=== PATIENT | male | born 1935 | race Caucasian/White ===

== ENCOUNTER 2017-11-20 13:50 | Emergency (ER) | payer MEDICARE, OTHER, SELFPAY ==
[2017-11-20 13:54] VITALS: BP 137/73; PULSE 59; RESP 14; TEMP 36.6; O2SAT 97; BMI 31.0
--- NOTE | 2017-11-20 14:09 | ED_ITS ---
HPI - Extremity Injury (Lower) General Chief Complaint: Extremity Injury, Lower Stated Complaint: PAIN IN LEFT LEG Time Seen by Provider: 11/20/17 14:08 Source: patient Mode of arrival: ambulatory Limitations: no limitations History of Present Illness HPI Narrative: This 82-year-old male comes in due to onset of left lower leg pain yesterday without any known trauma. He has been walking daily as usual including today. He states that does not seem to make much of a difference in the pain, however it was quite achy and bothersome to him last night. He states pain is dull and at times he will feel a little bit of brief, sharper pain lateral to the left knee. He states that he was concerned about pain in his calf because he has a history of phlebitis in that leg in the last couple of months. No deep clock was found and he states he has not needed any treatment for that. He denies any chest pain, dyspnea, nausea or vomiting. He denies any swelling in his extremities, lightheadedness, or other complaints on systems review Related Data Home Medications Medication Instructions Recorded Confirmed ASPIRIN (Aspirin Low Dose) 81 mg PO Q DAY #0 07/28/08 CALCIUM CARBONATE/VITAMIN D3 600 mg PO Q DAY #0 07/28/08 (Oyster Shell Calcium-Vit D Tab) ISOSORBIDE DINITRATE (Isordil) 60 mg PO BID #0 07/28/08 LEVOTHYROXINE SODIUM (Synthroid) 150 mcg PO Q DAY #0 07/28/08 OMEPRAZOLE 20 mg PO Q DAY #0 07/28/08 Simvastatin (Zocor) 40 mg PO HS #0 07/28/08 VERAPAMIL HYDROCHLORIDE (Isoptin / 40 mg PO BID #0 07/28/08 Calan) VITAMIN C - 500 mg PO Q DAY #0 07/28/08 (VITAMIN C) [AVODART] 0.5 Q DAY #0 07/28/08 Review of Systems Review of Systems All systems reviewed & are unremarkable except as noted in HPI and below PFSH Medical History BPH (benign prostatic hyperplasia) (Chronic) GERD (gastroesophageal reflux disease) (Chronic) GERD with apnea (Chronic) HTN (hypertension) (Chronic) Phlebitis (Chronic) Surgical History History of cataract surgery (Resolved) Hx of vasectomy (Resolved) Social History Smoking Status: Never smoker Exam Narrative Exam Narrative: GENERAL APPEARANCE: Patient sitting comfortably, in no distress. NECK/THYROID: Neck supple, no JVD. LUNGS: Clear to auscultation bilaterally. HEART: Regular rate and rhythm without murmur, normal S1, S2, no S3 or S4. EXTREMITIES: No cyanosis or edema. DP and PT pulses 2+ bilaterally Left calf is moderately tender, also tender over the borders of the left mauro. There is a large ropy varicosity noted in the right medial thigh which is nontender NEUROLOGIC: Alert and oriented, normal speech and coordination. MS: There is no tenderness over the left knee joint. He has a little bit mild tenderness at the proximal border of the left fibula. Also mildly tender over the left TFL distribution to the lateral hip. Full ROM left hip and knee without tenderness MDM - Extremity Injury (Lower) Imaging Data doppler: Radiologist's impression: View Report History Print [address] [address] Ultrasound Report Signed Patient: Avinash Alford MR#: [id number] : 1935 Acct:[id number] Age/Sex: 82 / M Date of Service: 11/20/17 Loc: ED Accession Number: [id number] Procedure: perip venous low extrem lt Ordering Provider: Yazmin Peres P.A-C PROCEDURE: US PERIP VENOUS LOW EXTREM LT INDICATIONS: CALF PAIN; RECENT PHLEBITIS TECHNIQUE: Real-time imaging, as well as color and pulse Doppler interrogation, were performed of the lower extremity deep veins from the inguinal ligament to the popliteal fossa. COMPARISON: [facility], PVE UNILATERAL LEFT, 08/28/2017, 15:56. FINDINGS: The deep veins are normally compressible, and free of intraluminal thrombus. Color and pulse Doppler demonstrate normal phasic intraluminal flow. There is normal augmentation response to distal compression maneuver. IMPRESSION: No evidence of left lower extremity deep venous thrombus. Dictated by: Kenneth Moran M.D. on 11/20/2017 at 15:15 Approved by: Kenneth Moran M.D. on 11/20/2017 at 15:[address] [address] Ultrasound Report Signed Patient: Avinash Alford MR#: [id number] : 1935 Acct:[id number] Age/Sex: 82 / M Date of Service: 11/20/17 Loc: ED Accession Number: [id number] Procedure: US periph venous low extrem lt Ordering Provider: Yazmin Peres P.A-C PROCEDURE: US PERIPH VENOUS LOW EXTREM LT INDICATIONS: CALF PAIN; RECENT PHLEBITIS TECHNIQUE: Real-time imaging, as well as color and pulse Doppler interrogation, were performed of the lower extremity deep veins from the inguinal ligament to the popliteal fossa. COMPARISON: [facility], , PVE UNILATERAL LEFT, 08/28/2017, 15:56. FINDINGS: The deep veins are normally compressible, and free of intraluminal thrombus. Color and pulse Doppler demonstrate normal phasic intraluminal flow. There is normal augmentation response to distal compression maneuver. IMPRESSION: No evidence of left lower extremity deep venous thrombus. Dictated by: Kenneth Moran M.D. on 11/20/2017 at 15:15 Approved by: Kenneth Moran M.D. on 11/20/2017 at 15:16 Course Orders Ordered: ED Orders 11/20/17 14:24 US perip venous low extrem lt Stat Last Vital Signs Temp 97.6 F 11/20/17 15:48 Pulse 63 11/20/17 15:48 Resp 20 11/20/17 15:48 BP 135/78 H 11/20/17 15:48 Pulse Ox 97 11/20/17 15:48 Discharge Plan Departure Patient Disposition: Home, Self-Care Clinical Impression: Mauro splints, Strain of calf muscle Discharge Date/Time: 11/20/17 15:51 Interventions: ED Discharge Assessment Last Done: 11/20/17 15:48 Instructions: DI for Calf Muscle Strain, DI for Mauro Splint-Adult Activity Restrictions/Additional Instructions: There is no clot in your deep veins found on ultrasound today. You appear to have strain of the calf muscles as well as strain of the muscles that attached to your mauro ?mauro splints?. I have given you instructions for these. You can continue your Aleve and also add Tylenol if needed (tylenol arthritis or 8 hour is 650mg per tab, 1 tab every 8 hours as needed). You should follow up with your PCP for recheck, and return if any new or acutely worsening symptoms in the interim. it is not clear why you have developed these now since you have not changed or exercise routine or activity so you should talk with your PCP about whether further testing or referrals are needed Prescriptions: No Action VERAPAMIL HYDROCHLORIDE (Isoptin / Calan) 40 mg PO BID Qty: 0 RF: 0 ASPIRIN (Aspirin Low Dose) 81 mg PO Q DAY Qty: 0 RF: 0 ISOSORBIDE DINITRATE (Isordil) 60 mg PO BID Qty: 0 RF: 0 OMEPRAZOLE 20 mg PO Q DAY Qty: 0 RF: 0 Simvastatin (Zocor) 40 mg PO HS Qty: 0 RF: 0 CALCIUM CARBONATE/VITAMIN D3 (Oyster Shell Calcium-Vit D Tab) 600 mg PO Q DAY Qty: 0 RF: 0 LEVOTHYROXINE SODIUM (Synthroid) 150 mcg PO Q DAY Qty: 0 RF: 0 VITAMIN C - (VITAMIN C) 500 mg PO Q DAY Qty: 0 RF: 0 [AVODART] 0.5 Q DAY Qty: 0 RF: 0 Referrals: Diego Field MD [Primary Care Provider] -
--- NOTE | 2017-11-20 14:24 | DI.US.S_ITS ---
PROCEDURE: US PERIPH VENOUS LOW EXTREM LT INDICATIONS: CALF PAIN; RECENT PHLEBITIS TECHNIQUE: Real-time imaging, as well as color and pulse Doppler interrogation, were performed of the lower extremity deep veins from the inguinal ligament to the popliteal fossa. COMPARISON: [facility], , PVE UNILATERAL LEFT, 08/28/2017, 15:56. FINDINGS: The deep veins are normally compressible, and free of intraluminal thrombus. Color and pulse Doppler demonstrate normal phasic intraluminal flow. There is normal augmentation response to distal compression maneuver. IMPRESSION: No evidence of left lower extremity deep venous thrombus. Dictated by: Kenneth Moran M.D. on 11/20/2017 at 15:15 Approved by: Kenneth Moran M.D. on 11/20/2017 at 15:16
[2017-11-20 15:48] VITALS: BP 135/78; PULSE 63; RESP 20; TEMP 36.4; O2SAT 97
== END 2017-11-20 15:51 | disposition home or self-care (01) ==
PROVIDERS: Emergency Provider Internal Medicine; Family Provider Family Medicine; PCP Family Medicine
DX: S86.899A Other injury of other muscle(s) and tendon(s) at lower leg level, unspecified leg, initial encounter (principal); S86.819A Strain of other muscle(s) and tendon(s) at lower leg level, unspecified leg, initial encounter; Y93.01 Activity, walking, marching and hiking
CPT/HCPCS: 93971; 99282; 99284

== ENCOUNTER → 2018-12-21 13:47 | Outpatient (CLI) | payer MEDICARE, OTHER, SELFPAY ==
--- NOTE | 2018-12-21 | DI.RAD.S_ITS ---
PROCEDURE: XR KNEE LT 3V INDICATIONS: LEFT KNEE PAIN TECHNIQUE: 3 views of the knee were acquired. COMPARISON: [facility], , KNEE 3V LEFT, 01/10/2015, 12:51. FINDINGS: Bones: No fractures or dislocations. No suspicious bony lesions. Soft tissues: No joint effusion. Vascular calcifications consistent with atherosclerosis. IMPRESSION: Normal left knee. Atherosclerotic calcifications are present. Dictated by: Mitch Meier M.D. on 12/21/2018 at 16:59 Approved by: Mitch Meier M.D. on 12/21/2018 at 17:00
== END ==
PROVIDERS: Family Provider Family Medicine; PCP Family Medicine; Visit Provider Internal Medicine
DX: M25.562 Pain in left knee (principal); I70.202 Unspecified atherosclerosis of native arteries of extremities, left leg
CPT/HCPCS: 73562

== ENCOUNTER 2019-06-24 23:46 | Emergency (ER) | payer MEDICARE, OTHER, SELFPAY ==
[2019-06-24 23:55] VITALS: BP 150/89; PULSE 70; RESP 17; TEMP 36.8; O2SAT 97; BMI 28.7
--- NOTE | 2019-06-25 00:17 | ED_ITS ---
HPI - Male Genitourinary General Chief complaint: Urogenital-Male Stated complaint: Right Groin pain Time Seen by Provider: 06/25/19 00:11 Source: EMS Mode of arrival: EMS Limitations: no limitations History of Present Illness HPI Narrative: 84-year-old male here for evaluation of right lower quadrant abdominal pain/groin pain. Patient states the symptoms started just earlier this afternoon. He states that he describes as a cramping sensation. States that it comes on lasts for seconds and then goes away. He is unable to distinguish whether not it is worse with palpation. No urinary symptoms. No testicular pain. No history of kidney stones. Related Data Home Medications Medication Instructions Recorded Confirmed ASPIRIN (Aspirin Low Dose) 81 mg PO Q DAY #0 07/28/08 CALCIUM CARBONATE/VITAMIN D3 600 mg PO Q DAY #0 07/28/08 (Oyster Shell Calcium-Vit D Tab) ISOSORBIDE DINITRATE (Isordil) 60 mg PO BID #0 07/28/08 LEVOTHYROXINE SODIUM (Synthroid) 150 mcg PO Q DAY #0 07/28/08 OMEPRAZOLE 20 mg PO Q DAY #0 07/28/08 Simvastatin (Zocor) 40 mg PO HS #0 07/28/08 VERAPAMIL HYDROCHLORIDE (Isoptin / 40 mg PO BID #0 07/28/08 Calan) VITAMIN C - 500 mg PO Q DAY #0 07/28/08 (VITAMIN C) [AVODART] 0.5 Q DAY #0 07/28/08 Review of Systems Constitutional Constitutional: Denies fever(s) Cardiovascular Cardiovascular: Denies chest pain and Denies dyspnea Respiratory Respiratory: Denies dyspnea Gastrointestinal Gastrointestinal: Reports abdominal pain, Denies nausea and Denies vomiting Genitourinary Genitourinary: Denies hematuria, Denies genital lesions, Denies genital pain, Denies dysuria and Denies flank pain Musculoskeletal Musculoskeletal: Denies myalgias and Denies arthralgias Integumentary/Breasts Skin/Breast: Denies lesions and Denies rash Neurologic Neurologic: Denies behavioral changes Psychiatric Psychiatric: Denies behavioral changes Hematologic/Lymphatic Hematologic/Lymphatic: Denies easy bleeding and Denies easy bruising Patient History Medical History BPH (benign prostatic hyperplasia) (Chronic) GERD (gastroesophageal reflux disease) (Chronic) GERD with apnea (Chronic) HTN (hypertension) (Chronic) Phlebitis (Chronic) Surgical History (Updated 11/20/17 @ 15:08 by Yazmin Peres PA-C) History of cataract surgery (Resolved) Hx of vasectomy (Resolved) Social History Smoking Status: Never smoker Smoking Status: Never smoker alcohol intake frequency: 0-2 drinks per day Substance Use Type: does not use Exam Initial Vital Signs Initial Vital Signs: Vital Signs Temperature 98.2 F 06/24/19 23:55 Pulse Rate 70 06/24/19 23:55 Respiratory Rate 17 06/24/19 23:55 Blood Pressure 150/89 H 06/24/19 23:55 Pulse Oximetry 97 06/24/19 23:55 Const General: cooperative, comfortable and well developed Orientation: alert, awake and oriented x3 HENMT Head: normal to inspection and normocephalic Resp Effort & Inspection: normal respiratory effort Cardio Rate: regular rate GI Inspection: non-distended Palpation: soft, No firm and No tender External: normal external exam Penis: normal penis Scrotum: scrotum normal Testes: normal, testicular lie normal, epididymides normal and no epidiymal tenderness Skin Lesions: no lesions Rashes: no rashes Neuro General: alert and awake Cognition: normal cognition Speech: speech normal Extrem General: normal to inspection and capillary refill normal Psych Appearance: grossly normal and well kempt Course Orders Ordered: Discontinued Medications Cyclobenzaprine HCl (Flexeril 10 Mg Prepack) [address] [facility] SEEINSTR ONE Stop: 06/25/19 01:04 Last Admin: 06/25/19 01:09 Dose: 1 bottle Documented by: SAILAJA Vital Signs Vital signs: Vital Signs - 8 hr 06/24/19 23:55 Temperature 98.2 F Pulse Rate 70 Respiratory Rate 17 Blood Pressure 150/89 H Pulse Oximetry 97 MDM - Male Genitourinary Lab Data Attestation: I reviewed the patient's lab results. Labs: Urine Dip Bedside Urine Glucose Negative Bedside Urine Bilirubin - Negative Bedside Urine Ketone - Negative Urine Specific [place] 1.015 Bedside Urine Occult Blood - Negative Bedside Urine pH 6.5 Bedside Urine Protein - Negative Bedside Urine Urobilinogen +/- 1mg Bedside Urine Nitrite - Negative Bedside Urine Leukocytes - Negative Esterase MDM Narrative Medical decision making narrative: Patient was asymptomatic the time of my exam. He has no testicular tenderness. No hernias felt on the exam. He does describe the pain in his right inguinal area not so much the genital area. He actually states that his symptoms have been improving since arrival here to the emergency department. I do suspect this is a muscular etiology. We did discuss the use of muscle relaxers in the concerned about becoming lightheaded and falling. Will send him home with a prepack with few pills of this in it so that if he does have symptoms worsening home you could attempt these. Hold on further workup for now. No indication for antibiotics. Expressed understanding and agreement with plan. Discharge Plan Departure Patient Disposition: Home Clinical Impression: Abdominal cramping Discharge Date/Time: 06/25/19 01:14 Activity Restrictions/Additional Instructions: I do suspect that your symptoms are abdominal cramping. The medication that you were given this evening is for you just in case the symptoms start to worsen. This medication can make you drowsy so I would recommend not taking it unless your symptoms worsen. Contact your primary provider for follow-up. Return to the emergency department for any new or worsening symptoms Prescriptions: No Action VERAPAMIL HYDROCHLORIDE (Isoptin / Calan) 40 mg PO BID Qty: 0 RF: 0 ASPIRIN (Aspirin Low Dose) 81 mg PO Q DAY Qty: 0 RF: 0 ISOSORBIDE DINITRATE (Isordil) 60 mg PO BID Qty: 0 RF: 0 OMEPRAZOLE 20 mg PO Q DAY Qty: 0 RF: 0 Simvastatin (Zocor) 40 mg PO HS Qty: 0 RF: 0 CALCIUM CARBONATE/VITAMIN D3 (Oyster Shell Calcium-Vit D Tab) 600 mg PO Q DAY Qty: 0 RF: 0 LEVOTHYROXINE SODIUM (Synthroid) 150 mcg PO Q DAY Qty: 0 RF: 0 VITAMIN C - (VITAMIN C) 500 mg PO Q DAY Qty: 0 RF: 0 [AVODART] 0.5 Q DAY Qty: 0 RF: 0 Referrals: Diego Field MD [Primary Care Provider] -
--- NOTE | 2019-06-25 00:45 | PC.NURSE ---
Pt reports having spasm in pelvic region. States just above penis and to the right.
[2019-06-25] MEDS: CYCLOBENZAPRINE 10 MG PREPACK 1 BOTTLE MISC (01:09)
== END 2019-06-25 01:14 | disposition home or self-care (01) ==
PROVIDERS: Emergency Provider Emergency Medicine; Family Provider Family Medicine; PCP Family Medicine
DX: R10.9 Unspecified abdominal pain (principal)
CPT/HCPCS: 81003; 99281; 99283

== ENCOUNTER → 2019-07-01 11:38 | Outpatient (CLI) | payer MEDICARE, OTHER, SELFPAY ==
--- NOTE | 2019-07-01 | DI.CT.S_ITS ---
PROCEDURE: CT HEAD/BRAIN WO CON INDICATIONS: dizziness and giddiness TECHNIQUE: Noncontrast 4.5 mm thick angled axial sections acquired from the foramen magnum to the vertex, with coronal and sagittal reformats. For radiation dose reduction, the following was used: automated exposure control, adjustment of mA and/or kV according to patient size. COMPARISON: [facility], CT, HEAD WITHOUT CONTRAST, 04/20/2015, 12:17. FINDINGS: Image quality: Excellent. CSF spaces: Basal cisterns are patent. No extra-axial fluid collections. The ventricles are symmetric in size and shape. Brain: No intracranial bleeds or masses. There is cerebral volume loss for age, with resultant ventricular and sulcal prominence. There are periventricular and deep white matter chronic small vessel ischemic changes. There is intracranial internal carotid artery atherosclerosis. Skull and face: Calvarium and visualized facial bones appear intact, without suspicious lesions. Sinuses: Visualized sinuses and mastoids are clear. IMPRESSION: No acute intracranial process. Dictated by: Santos Mi M.D. on 07/01/2019 at 12:00 Approved by: Santos Mi M.D. on 07/01/2019 at 12:05
== END ==
PROVIDERS: Family Provider Family Medicine; PCP Family Medicine; Visit Provider Family Medicine
DX: R42 Dizziness and giddiness (principal)
CPT/HCPCS: 70450

== ENCOUNTER 2020-10-23 11:40 | Emergency (ER) | payer MEDICARE, OTHER, SELFPAY ==
[2020-10-23 12:00] VITALS: BP 170/72; PULSE 79; RESP 14; TEMP 36; O2SAT 99
--- NOTE | 2020-10-23 12:19 | DI.RAD.S_ITS ---
PROCEDURE: XR ABDOMEN 3V INDICATIONS: constipation TECHNIQUE: One view chest and two views of the abdomen were acquired. COMPARISON: None. FINDINGS: Surgical changes and devices: None. Chest: Lungs are clear. Heart size is normal. Atherosclerotic calcification of the aortic arch is noted. No pleural effusions. No pneumoperitoneum. Abdomen: Bowel gas pattern is normal. There is a moderate amount of stool seen within the colon. No suspicious calcifications. Visualized solid organ contours appear normal. Bones: No suspicious bony lesions. Age-appropriate bony degenerative changes are seen. IMPRESSION: There is a moderate amount of stool seen within the colon, which is consistent with the given history. Clear lungs. Dictated by: Benny Sanchez M.D. on 10/23/2020 at 11:43 Approved by: Benny Sanchez M.D. on 10/23/2020 at 11:43
[2020-10-23 13:48] VITALS: BP 128/60; TEMP 36.5; O2SAT 98
--- NOTE | 2020-10-23 14:16 | ED.ABDPAIN ---
HPI - Abdominal Pain General Chief Complaint: Abdominal Pain Stated Complaint: no bowel movement in 3-4 days Time Seen by Provider: 10/23/20 11:48 Source: patient Mode of arrival: Ambulatory Limitations: no limitations History of Present Illness HPI narrative: 85M nonsmoker with history of hypothyroid presents with a chief complaint of decreased bowel movements for the past 3 days. He denies any change in diet or medications. He denies any pain, nausea, vomiting or other symptoms whatsoever. He has had no dysuria, frequency or urgency and as stated otherwise healthy and at baseline. Related Data Home Medications Medication Instructions Recorded Confirmed ASPIRIN (Aspirin Low Dose) 81 mg PO Q DAY #0 07/28/08 CALCIUM CARBONATE/VITAMIN D3 600 mg PO Q DAY #0 07/28/08 (Oyster Shell Calcium-Vit D Tab) ISOSORBIDE DINITRATE (Isordil) 60 mg PO BID #0 07/28/08 LEVOTHYROXINE SODIUM (Synthroid) 150 mcg PO Q DAY #0 07/28/08 OMEPRAZOLE 20 mg PO Q DAY #0 07/28/08 Simvastatin (Zocor) 40 mg PO HS #0 07/28/08 VERAPAMIL HYDROCHLORIDE (Isoptin / 40 mg PO BID #0 07/28/08 Calan) VITAMIN C - 500 mg PO Q DAY #0 07/28/08 (VITAMIN C) [AVODART] 0.5 Q DAY #0 07/28/08 Allergies Allergy/AdvReac Type Severity Reaction Status Date / Time No Known Drug Allergies Allergy Verified 10/23/20 12:05 Review of Systems Constitutional Constitutional: Denies chills, Denies fatigue, Denies fever(s), Denies frequent falls, Denies lethargy and Denies weakness Eyes Eyes: Denies change in vision, Denies eye discharge, Denies irritation and Denies loss of vision ENT Ears, Nose, Mouth, and Throat: Denies change in voice, Denies dizziness, Denies neck pain, Denies sore throat and Denies throat swelling Cardiovascular Cardiovascular: Denies chest pain, Denies irregular heart rhythm, Denies lightheadedness, Denies palpitations, Denies dyspnea, Denies dyspnea on exertion and Denies orthopnea Respiratory Respiratory: Denies cough, Denies dyspnea, Denies dyspnea on exertion and Denies wheezing Gastrointestinal Gastrointestinal: Denies abdominal pain, Denies change in bowel habits, Reports constipation, Denies diarrhea, Denies nausea and Denies vomiting Musculoskeletal Musculoskeletal: Denies neck pain and Denies numbness Integumentary/Breasts Skin/Breast: Denies pruritus, Denies erythema, Denies rash and Denies wounds Neurologic Neurologic: Denies behavioral changes, Denies confusion, Denies dizziness, Denies frequent falls, Denies loss of vision, Denies numbness and Denies weakness Psychiatric Psychiatric: Denies anxiety, Denies behavioral changes, Denies confusion, Denies depression, Denies homicidal ideation and Denies suicidal ideation Endocrine Endocrine: Denies fatigue, Denies flushing and Denies palpitations Hematologic/Lymphatic Hematologic/Lymphatic: Denies easy bruising Allergic/Immunologic Allergic/Immunologic: Denies urticaria, Denies throat swelling and Denies wheezing Patient History Medical History BPH (benign prostatic hyperplasia) GERD (gastroesophageal reflux disease) GERD with apnea HTN (hypertension) Phlebitis Surgical History History of cataract surgery Hx of vasectomy Social History Smoking Status: Never smoker Smoking Status: Never smoker alcohol intake frequency: 0-2 drinks per day Substance Use Type: does not use Exam Narrative Exam Narrative: GENERAL: [85] year old patient appears stated age. Well-nourished, well-developed patient, in mild distress. HEAD: Atraumatic. Normocephalic. EYES: Pupils equal round and reactive. Extraocular motions intact. No scleral icterus. No injection or drainage. ENT: Nose without bleeding, purulent drainage. Throat without erythema, tonsillar hypertrophy or exudate. Airway patent. NECK: Trachea midline. Non tender CARDIOVASCULAR: Regular rate and rhythm without murmurs, gallops, or rubs. RESPIRATORY: Clear to auscultation. Breath sounds equal bilaterally. No wheezes, rales, or rhonchi. GASTROINTESTINAL: Abdomen soft, non-tender, nondistended. Bowel sounds present in all 4 quadrants EXTREMITIES: No edema or joint tenderness. BACK: Nontender without deformity or crepitance. No flank tenderness. NEURO: AOx3. SKIN: No rash or erythema of visible areas Initial Vital Signs Initial Vital Signs: Vital Signs Temperature 96.8 F L 10/23/20 12:00 Pulse Rate 79 10/23/20 12:00 Respiratory Rate 14 10/23/20 12:00 Blood Pressure 170/72 H 10/23/20 12:00 Pulse Oximetry 99 10/23/20 12:00 Course Orders Ordered: ED Orders 10/23/20 12:19 XR acute abdomen series Stat Vital Signs Vital signs: Vital Signs - 8 hr 10/23/20 12:00 10/23/20 13:48 Temperature 96.8 F L 97.7 F Pulse Rate 79 Respiratory Rate 14 Blood Pressure 170/72 H 128/60 Pulse Oximetry 99 98 MDM - Abdominal Pain Imaging Data Abdominal x-ray: Radiologist's Impression: Chart Viewer Diagnostics DATE TYPE STATUS REF RANGE/AUTHOR Hx Today 12:19 Leila Sancheze 07/01/19 00:00 ShmuelSantos 12/21/18 00:00 ReneaKrystal 11/20/17 14:24 LuisaGonzalo ray Avinash Alford 85, 07/25/1934 [facility] ER, Main ED 88.451kg Abdominal Pain Search Chart No Data to Display NonFormulary Not Included in Conflicts ONSET Today 13:48 Avinash Alford 85 M [address] [address]XM[place] ReportSigned Patient: Avinash AlfordMR#: [id number]: 5Acct:[id number]/Sex: 85 / MDate of Service: 10/23/20Loc: EDAccession Number: [id number] Procedure: XR acute abdomen series Ordering Provider: Trent Sellers D.O. PROCEDURE: XR ABDOMEN 3V INDICATIONS: constipation TECHNIQUE: One view chest and two views of the abdomen were acquired. COMPARISON: None. FINDINGS: Surgical changes and devices: None. Chest: Lungs are clear. Heart size is normal. Atherosclerotic calcification of the aortic arch is noted. No pleural effusions. No pneumoperitoneum. Abdomen: Bowel gas pattern is normal. There is a moderate amount of stool seen within the colon. No suspicious calcifications. Visualized solid organ contours appear normal. Bones: No suspicious bony lesions. Age-appropriate bony degenerative changes are seen. IMPRESSION: There is a moderate amount of stool seen within the colon, which is consistent with the given history. Clear lungs. Dictated by: Benny Sanchez M.D. on 10/23/2020 at 11:43 Approved by: Benny Sanchez M.D. on 10/23/2020 at 11:[address] [facility] Narrative Medical decision making narrative: Multiple etiologies for patient's symptoms considered including: [Constipation versus bowel obstruction versus other] Patient has no pain, no nausea, no vomiting, no fever and is otherwise well and free of complaint. Imaging is consistent with constipation. Extensive discussion with patient and family regarding attempts to get bowels moving with laxatives and if patient were to develop other symptoms return for more complete workup evaluation Findings and discharge diagnosis discussed with patient/family followed by verbalization of understanding Return precautions discussed with patient/family whom verbalize understanding. Discharge Plan Departure Patient Disposition: Home Clinical Impression: Constipation Qualifiers: Constipation type: other constipation type Qualified Code(s): K59.09 - Other constipation Instructions: DI for Constipation Activity Restrictions/Additional Instructions: *You have been diagnosed with [constipation ] *What to do: *Take over the counter medications as directed: 1. Metamucil - is a bulk forming laxative and adds fiber 2. Colace - softens your stool 3. Dulcolax suppository - stimulates your bowels *Follow up with your primary care provider in 2-3 days, call for appointment *Return to ER if you should have any new, worsening or concerning symptoms *Drink plenty of water and eat foods high in fiber *Stay as active as you can as this helps move your bowels as well Prescriptions: No Action VERAPAMIL HYDROCHLORIDE (Isoptin / Calan) 40 mg PO BID Qty: 0 RF: 0 ASPIRIN (Aspirin Low Dose) 81 mg PO Q DAY Qty: 0 RF: 0 ISOSORBIDE DINITRATE (Isordil) 60 mg PO BID Qty: 0 RF: 0 OMEPRAZOLE 20 mg PO Q DAY Qty: 0 RF: 0 Simvastatin (Zocor) 40 mg PO HS Qty: 0 RF: 0 CALCIUM CARBONATE/VITAMIN D3 (Oyster Shell Calcium-Vit D Tab) 600 mg PO Q DAY Qty: 0 RF: 0 LEVOTHYROXINE SODIUM (Synthroid) 150 mcg PO Q DAY Qty: 0 RF: 0 VITAMIN C - (VITAMIN C) 500 mg PO Q DAY Qty: 0 RF: 0 [AVODART] 0.5 Q DAY Qty: 0 RF: 0 Referrals: Diego Field MD [Primary Care Provider] -
== END 2020-10-23 14:25 | disposition home or self-care (01) ==
PROVIDERS: Emergency Provider Emergency Medicine; Family Provider Family Medicine; PCP Family Medicine
DX: K59.09 Other constipation (principal)
CPT/HCPCS: 74022; 99281; 99283

== ENCOUNTER → 2022-01-22 17:42 | Outpatient (CLI) | payer MEDICARE, OTHER, SELFPAY ==
--- NOTE | 2022-01-22 | DI.RAD.S_ITS ---
PROCEDURE: XR ANKLE LT MIN 3V INDICATIONS: PAIN TECHNIQUE: 3 views of the ankle were acquired. COMPARISON: None. FINDINGS: Bones: No fractures or dislocations. Ankle mortise is normally aligned. No suspicious bony lesions. Tibiotalar osteoarthritis. Small plantar calcaneal bone spur. Soft tissues: No tibiotalar joint effusion. Achilles tendon appears normal. IMPRESSION: No fracture. No acute osseous lesion. If symptoms and/or clinical suspicion for pathology persists, further assessment with repeat radiographs (7-10 days) or advanced imaging (e.g. CT, MRI or bone scan) should be considered. Dictated by: Randa Jorgensen MD, PhD on 01/23/2022 at 12:02 Approved by: Randa Jorgensen MD, PhD on 01/23/2022 at 12:03
== END ==
PROVIDERS: Family Provider Family Medicine; PCP Family Medicine; Referring Provider Family Medicine; Visit Provider Family Medicine
DX: M25.572 Pain in left ankle and joints of left foot (principal)
CPT/HCPCS: 73610

== ENCOUNTER → 2022-12-31 10:15 | Outpatient (CLI) | payer MEDICARE, OTHER, SELFPAY ==
--- NOTE | 2022-12-31 | DI.US.S_ITS ---
PROCEDURE: US PERIPH VENOUS LOW EXTREM RT INDICATIONS: FOLLOW UP / HISTORY OF CLOT IN CALF TECHNIQUE: Real-time imaging, as well as color and pulse Doppler interrogation, were performed of the lower extremity deep veins from the inguinal ligament to the popliteal fossa. COMPARISON: ER report from [facility]. Images not available. FINDINGS: The common femoral, femoral and popliteal veins are normally compressible, and free of intraluminal thrombus. Color and pulse Doppler demonstrate normal phasic intraluminal flow. There is normal augmentation response to distal compression maneuver. There are occlusive filling defects involving the tributary of greater saphenous vein in the medial aspect of the knee, consistent with superficial thrombophlebitis. Varicosities noted in the area of concern. The patient had a prior lower extremity Doppler ultrasound which showed superficial thrombophlebitis. IMPRESSION: 1. No DVT in the right lower extremity. 2. Persistent superficial thrombophlebitis. Dictated by: Mitch Meier M.D. on 12/31/2022 at 13:22 Approved by: Mitch Meier M.D. on 12/31/2022 at 18:51
== END ==
PROVIDERS: Family Provider Family Medicine; PCP Family Medicine; Referring Provider Family Medicine; Visit Provider Family Medicine
DX: I83.91 Asymptomatic varicose veins of right lower extremity (principal); I80.01 Phlebitis and thrombophlebitis of superficial vessels of right lower extremity
CPT/HCPCS: 93971

== ENCOUNTER 2023-01-17 08:32 | Emergency (ER) | payer MEDICARE, OTHER, SELFPAY ==
[2023-01-17] VITALS (15 sets, daily range): BP systolic 119–144; BP diastolic 58–76; PULSE 49–67; RESP 16–51; TEMP 36.4; O2SAT 95–99; BMI 29.5
--- NOTE | 2023-01-17 08:43 | DI.US.S_ITS ---
PROCEDURE: US [facility] VENOUS LOW EXTREM RT INDICATIONS: KNOWN DEEP VEIN THROMBOSIS WITH INCREASING PAIN TECHNIQUE: Real-time imaging, as well as color and pulse Doppler interrogation, were performed of the lower extremity deep veins from the inguinal ligament to the popliteal fossa. COMPARISON: [facility], [facility] VENOUS LOW EXTREM RT, 12/31/2022, 10:35. FINDINGS: The common femoral, femoral and popliteal veins are normally compressible, and free of intraluminal thrombus. Color and pulse Doppler demonstrate normal phasic intraluminal flow. There is normal augmentation response to distal compression maneuver. There is a superficial vein clot in the right posterior/medial/proximal calf. IMPRESSION: 1. No right DVT. 2. Superficial vein thrombus in the right calf. Dictated by: Jacoby Jay M.D. on 01/17/2023 at 11:19 Approved by: Jacoby Jay M.D. on 01/17/2023 at 11:27
[2023-01-17 08:53] LABS: Add Manual Diff / Slide Review NO; Basophils Absolute Auto 0 /uL (0-100); Basophils Percent Auto 0.3 % (0-2); Eosinophils Absolute Auto 100 /uL (0-450); Eosinophils Percent Auto 1.5 % (2-4); Hematocrit 47.7 % (41-53); Hemoglobin 16.4 g/dL (13.5-17.5); Lymphocytes Absolute Auto 1300 /uL (1100-4500); Lymphocytes Percent Auto 17.4 % (25-40); Mean Corpuscular HGB Conc 34.3 % (30-36); Mean Corpuscular Hemoglobin 32.3 PG (26-34); Monocytes Absolute Auto 400 /uL (0-900); Monocytes Percent Auto 5.4 % (3-14); Neutrophils Absolute Auto 5500 /uL (1500-7000); Neutrophils Percent Auto 75.4 % (50-75); Platelet Count 187 X10^3/uL (150-400); Red Blood Cell Count 5.07 X10^6/uL (4.5-5.9); Red Cell Distribution Width 13.4 % (11.6-14.8); White Blood Cell Count 7.3 X10^3/uL (4.5-11.0)
--- NOTE | 2023-01-17 08:59 | DI.CT.S_ITS ---
PROCEDURE: CT ANGIO CHEST PE PROTOCOL INDICATIONS: known dvt, with sob snd chest pain TECHNIQUE: After the administration of intravenous contrast, 2 mm thick sections acquired from the pulmonary apices to the posterior costophrenic angles. 3-dimensional maximum intensity projection (MIP) coronal and sagittal reformats were then acquired through the thorax. For radiation dose reduction, the following was used: automated exposure control, adjustment of mA and/or kV according to patient size. COMPARISON: None. FINDINGS: Image quality: Excellent. Lungs and pleura: No acute air space opacities. No pleural effusions or pneumothorax. Central and peripheral airways are patent and normal in caliber. Mediastinum: Heart size is normal. The coronary arteries have atherosclerotic calcifications. No pericardial effusion. No mediastinal adenopathy by size criteria. Thoracic aorta and central pulmonary arteries are normal in size. Esophagus is normal in caliber. No hiatal hernia. Bones and chest wall: No suspicious bony lesions. No vertebral body compression fractures. No axillary or supraclavicular adenopathy by size criteria. Thyroid gland is normal. Abdomen: Limited visualization of the upper abdomen shows no acute abnormality. Gallbladder contains a 3 millimeter stone. IMPRESSION: 1. No pulmonary embolism. 2. No acute abnormality. Dictated by: Jacoby Jay M.D. on 01/17/2023 at 8:59 Approved by: Jacoby Jay M.D. on 01/17/2023 at 9:03
--- NOTE | 2023-01-17 09:02 | ED.EXTPRO ---
HPI - Extremity Problem General Chief complaint: Extremity Problem,Nontraumatic Stated complaint: Hx blood clot, leg pains Time Seen by Provider: 01/17/23 08:41 Source: patient Mode of arrival: Ambulatory History of Present Illness HPI Narrative: Patient is a 87-year-old male history of hypothyroid, hypertension presents today with known DVT on Eliquis. He reports that he was diagnosed in [facility] last month with an ultrasound. Unclear etiology of DVT. He reports that he dejesus down in [place] and recently came back up here. He is given a 1 month supply Eliquis blister started pack. He only has 3 more days left he was told to get a repeat ultrasound to see if the blood clot is gone or not. Records actually report that he does not have a DVT they has a superficial thrombus noted in the tortuous varices in the proximal calf. This was the official report from [facility] where he was diagnosed on 12/19/2022. He had a repeat ultrasound here 12/31/2022 which showed the same. Related Data Home Medications Medication Instructions Recorded Confirmed ASPIRIN (Aspirin Low Dose) 81 mg PO Q DAY ##0 07/28/08 CALCIUM CARBONATE/VITAMIN D3 600 mg PO Q DAY ##0 07/28/08 (Oyster Shell Calcium-Vit D Tab) ISOSORBIDE DINITRATE (Isordil) 60 mg PO BID ##0 07/28/08 LEVOTHYROXINE SODIUM (Synthroid) 150 mcg PO Q DAY ##0 07/28/08 OMEPRAZOLE 20 mg PO Q DAY ##0 07/28/08 Simvastatin (Zocor) 40 mg PO HS ##0 07/28/08 VERAPAMIL HYDROCHLORIDE (Isoptin / 40 mg PO BID ##0 07/28/08 Calan) VITAMIN C - 500 mg PO Q DAY ##0 07/28/08 (VITAMIN C) [AVODART] 0.5 Q DAY ##0 07/28/08 Allergies Allergy/AdvReac Type Severity Reaction Status Date / Time No Known Drug Allergies Allergy Verified 10/23/20 12:05 Review of Systems Review of Systems ROS Unobtainable: All systems reviewed & are unremarkable except as noted in HPI and below Patient History Medical History BPH (benign prostatic hyperplasia) GERD (gastroesophageal reflux disease) GERD with apnea HTN (hypertension) Phlebitis Surgical History History of cataract surgery Hx of vasectomy Social History Smoking Status: Never smoker Smoking Status: Never smoker alcohol intake frequency: 0-2 drinks per day Substance Use Type: does not use Exam Initial Vital Signs Initial Vital Signs: Vital Signs Pulse Rate 67 01/17/23 08:37 Respiratory Rate 21 01/17/23 08:37 Pulse Oximetry 98 01/17/23 08:37 GENERAL: Alert pleasant 87-year-old male and in no acute distress. HEENT: Head atraumatic,EOMI, pupils reactive, face symmetric, moist mucous membranes CARDIOVASCULAR: Regular rate and rhythm without murmurs, rubs or gallops. RESPIRATORY: Breath sounds equal bilaterally, no wheezes rales or rhonchi. ABDOMEN: Soft, nontender. Normoactive bowel sounds all 4 quadrants. No guarding or rebound. EXTREMITIES: Normal range of motion, no clubbing or edema. Neurovascularly intact Right lower extremity significant medial varicose veins no significant calf tenderness swelling or redness. NEUROLOGICAL: Alert and oriented x4. SKIN: Warm, dry, no laceration, no petechiae, no rashes or lesions. Course Orders Ordered: ED Orders 01/17/23 08:40 CBC Auto Diff [Complete Blood Count AUTO DIFF] Stat CMP [Comprehensive Metabolic Panel] Stat Troponin & CK Cardiac Panel Stat 01/17/23 08:43 US periph venous low extrem rt Stat 01/17/23 08:48 EKG-12 Lead Stat 01/17/23 08:59 CT angio chest PE protocol Stat Vital Signs Vital signs: Vital Signs - 8 hr 01/17/23 08:43 01/17/23 08:48 01/17/23 08:37 Temperature 97.6 F Pulse Rate 67 67 Pulse Rate [Right Dorsalis Pedis] 60 Respiratory Rate 16 21 Blood Pressure 135/65 Pulse Oximetry 99 98 Oxygen Delivery Method Room Air 01/17/23 08:38 01/17/23 08:38 01/17/23 09:00 Temperature Pulse Rate 63 59 L Pulse Rate [Right Dorsalis Pedis] Respiratory Rate 23 20 Blood Pressure 135/65 Pulse Oximetry 99 98 Oxygen Delivery Method 01/17/23 09:30 01/17/23 09:45 01/17/23 10:00 Temperature Pulse Rate 57 L 54 L 57 L Pulse Rate [Right Dorsalis Pedis] Respiratory Rate 24 17 26 H Blood Pressure Pulse Oximetry 97 96 97 Oxygen Delivery Method 01/17/23 10:15 01/17/23 10:30 01/17/23 10:33 Temperature Pulse Rate 65 49 L Pulse Rate [Right Dorsalis Pedis] Respiratory Rate 51 H 18 Blood Pressure 119/58 L Pulse Oximetry 95 96 Oxygen Delivery Method 01/17/23 10:33 01/17/23 10:46 01/17/23 10:48 Temperature Pulse Rate 53 L 60 53 L Pulse Rate [Right Dorsalis Pedis] Respiratory Rate 21 21 Blood Pressure Pulse Oximetry 97 98 98 Oxygen Delivery Method 01/17/23 10:48 01/17/23 11:00 01/17/23 11:00 Temperature Pulse Rate 52 L Pulse Rate [Right Dorsalis Pedis] Respiratory Rate 21 Blood Pressure 144/76 H 124/65 Pulse Oximetry 98 Oxygen Delivery Method 01/17/23 11:08 01/17/23 11:08 Temperature Pulse Rate 52 L Pulse Rate [Right Dorsalis Pedis] Respiratory Rate 22 Blood Pressure 127/71 Pulse Oximetry 98 Oxygen Delivery Method MDM - Extremity (Nontraumatic) Lab Data 01/17/23 08:40 01/17/23 08:40 Labs: Lab Results 01/17/23 01/17/23 Range/Units 08:40 08:40 WBC 7.3 (4.5-11.0) X10^3/uL RBC 5.07 (4.5-5.9) X10^6/uL Hgb 16.4 (13.5-17.5) g/dL Hct 47.7 (41-53) % MCV 94.0 (80-100) fL MCH 32.3 (26-34) PG MCHC 34.3 (30-36) % RDW 13.4 (11.6-14.8) % Plt Count 187 (150-400) X10^3/uL Neut % (Auto) 75.4 H (50-75) % Lymph % (Auto) 17.4 L (25-40) % Thurston % (Auto) 5.4 (3-14) % Eos % (Auto) 1.5 L (2-4) % Baso % (Auto) 0.3 (0-2) % Neut # (Auto) 5500 (7891-3326) /uL Lymph # (Auto) 1300 (0072-4308) /uL Thurston # (Auto) 400 (0-900) /uL Eos # (Auto) 100 (0-450) /uL Baso # (Auto) 0 (0-100) /uL Sodium 140 (137-145) mmol/L Potassium 3.9 (3.4-5.1) mmol/L Chloride 104 (98-107) mmol/L Carbon Dioxide 29 (22-32) mmol/L BUN 15 (9-20) mg/dL Creatinine 0.96 (0.66-1.25) mg/dL Estimated GFR > 60 (>60) mL/min BUN/Creatinine Ratio 15.6 (6-22) Glucose 116 H (80-110) mg/dL Calcium 9.2 (8.4-10.2) mg/dL Total Bilirubin 0.7 (0.2-1.3) mg/dL AST 21 (17-59) IU/L ALT 16 (<50) IU/L Alkaline Phosphatase 47 (38-126) U/L Total Creatine Kinase 33 L (55-170) U/L Troponin I < 0.012 (0.01-0.034) ng/mL Total Protein 6.8 (6.3-8.2) g/dL Albumin 3.9 (3.5-5.0) g/dL Globulin 2.9 (1.7-4.1) g/dL Albumin/Globulin Ratio 1.3 (1.0-2.8) Imaging Data CT scan - chest: Radiologist's Impression: PROCEDURE:? CT ANGIO CHEST PE PROTOCOL ? INDICATIONS:? known dvt, with sob snd chest pain ? TECHNIQUE:? After the administration of intravenous contrast, 2 mm thick sections acquired from the pulmonary apices to the posterior costophrenic angles.? 3-dimensional maximum intensity projection (MIP) coronal and sagittal reformats were then acquired through the thorax.? For radiation dose reduction, the following was used:? automated exposure control, adjustment of mA and/or kV according to patient size.? ? COMPARISON:? None. ? FINDINGS: Image quality:? Excellent.? ? Lungs and pleura: No acute air space opacities. No pleural effusions or pneumothorax.? Central and peripheral airways are patent and normal in caliber.? ? Mediastinum:? Heart size is normal.? The coronary arteries have atherosclerotic calcifications.? No pericardial effusion.? No mediastinal adenopathy by size criteria.? Thoracic aorta and central pulmonary arteries are normal in size.? Esophagus is normal in caliber.? No hiatal hernia. ? Bones and chest wall:? No suspicious bony lesions. No vertebral body compression fractures.? No axillary or supraclavicular adenopathy by size criteria.? Thyroid gland is normal. ? Abdomen:? Limited visualization of the upper abdomen shows no acute abnormality.? Gallbladder contains a 3 millimeter stone. ? IMPRESSION: 1. No pulmonary embolism. 2. No acute abnormality.? ? Dictated by: Jacoby Jay M.D. on 01/17/2023 at 8:59 ? ? Approved by: Jacoby Jay M.D. on 01/17/2023 at 9:03 ? US - DVT: Radiologist's Impression: PROCEDURE:? US PERIPH VENOUS LOW EXTREM RT ? INDICATIONS:? KNOWN DEEP VEIN THROMBOSIS WITH INCREASING PAIN ? TECHNIQUE:? Real-time imaging, as well as color and pulse Doppler interrogation, were performed of the lower extremity deep veins from the inguinal ligament to the popliteal fossa.? ? COMPARISON:? [facility], PERIPH VENOUS LOW EXTREM RT, 12/31/2022, 10:35. ? FINDINGS:? The common femoral, femoral and popliteal veins are normally compressible, and free of intraluminal thrombus.? Color and pulse Doppler demonstrate normal phasic intraluminal flow.? There is normal augmentation response to distal compression maneuver. ?There is a superficial vein clot in the right posterior/medial/proximal calf. ? IMPRESSION:? 1. No right DVT. 2. Superficial vein thrombus in the right calf.? ? ? Dictated by: Jacoby Jay M.D. on 01/17/2023 at 11:19 ? ECG Data Interpretation: Normal sinus rhythm rate 63 DE interval 182 QRS [address] changes no T-wave inversions MDM Narrative Medical decision making narrative: Patient 87-year-old male history of varicose veins with superficial thrombosis on Eliquis. Presents today with increasing pain. He is had some intermittent chest pain as well. CT angio was negative for pulmonary embolism blood work is overall reassuring. He is now had 3 ultrasounds that show a superficial thrombus and no evidence of a DVT. He actually does not need to continue Eliquis he can have NSAIDS and compression socks. No need to continue the Eliquis. Blood work does not show any abnormality with leukocytosis anemia ALICIA or elevated troponin. EKGs also within normal limits and a negative troponin. Discharge Plan Departure Patient Disposition: Home Clinical Impression: Superficial thrombophlebitis Instructions: DI for Superficial Thrombophlebitis Activity Restrictions/Additional Instructions: *You have been diagnosed with superficial thrombophlebitis *What to do: At this time you do not necessarily need Eliquis. Recommend compression sock or compression, ice and anti-inflammatory. *Continue to take medications as directed No need for a refill on Eliquis, you may finish it if you choose Aspirin 325 once daily (do not mix with Eliquis) *Follow up with your primary care provider in 2-3 days or call [phone] *Return to ER if you should have increased pain redness swelling fever or any new, worsening or concerning symptoms Prescriptions: No Action VERAPAMIL HYDROCHLORIDE (Isoptin / Calan) 40 mg PO BID Qty: 0 ASPIRIN (Aspirin Low Dose) 81 mg PO Q DAY Qty: 0 ISOSORBIDE DINITRATE (Isordil) 60 mg PO BID Qty: 0 OMEPRAZOLE 20 mg PO Q DAY Qty: 0 Simvastatin (Zocor) 40 mg PO HS Qty: 0 CALCIUM CARBONATE/VITAMIN D3 (Oyster Shell Calcium-Vit D Tab) 600 mg PO Q DAY Qty: 0 LEVOTHYROXINE SODIUM (Synthroid) 150 mcg PO Q DAY Qty: 0 VITAMIN C - (VITAMIN C) 500 mg PO Q DAY Qty: 0 [AVODART] 0.5 Q DAY Qty: 0 Referrals: Diego Field MD [Primary Care Provider] - Stand Alone Forms: Patient Portal/API
[2023-01-17 09:03] LABS: Alanine Aminotransferase 16 IU/L (<50); Albumin 3.9 g/dL (3.5-5.0); Albumin Globulin Ratio 1.3 (1.0-2.8); Alkaline Phosphatase 47 U/L (38-126); Aspartate Aminotransferase 21 IU/L (17-59); BUN Creatinine Ratio 15.6 (6-22); Bilirubin Total 0.7 mg/dL (0.2-1.3); Blood Urea Nitrogen 15 mg/dL (9-20); Calcium 9.2 mg/dL (8.4-10.2); Carbon Dioxide 29 mmol/L (22-32); Chloride 104 mmol/L (98-107); Creatine Kinase 33 U/L (55-170); Estimated Glomerular Filt Rate > 60 mL/min (>60); Globulin 2.9 g/dL (1.7-4.1); Glucose 116 mg/dL (80-110); HEMOLYSIS < 15 (0-50); Potassium 3.9 mmol/L (3.4-5.1); Sodium 140 mmol/L (137-145); Total Protein 6.8 g/dL (6.3-8.2)
[2023-01-17 09:15] LABS: Troponin I < 0.012 ng/mL (0.01-0.034)
== END 2023-01-17 11:21 | disposition home or self-care (01) ==
PROVIDERS: Emergency Provider Emergency Medicine; Family Provider Family Medicine; PCP Family Medicine
DX: I80.3 Phlebitis and thrombophlebitis of lower extremities, unspecified (principal); R07.9 Chest pain, unspecified; Z79.01 Long term (current) use of anticoagulants
CPT/HCPCS: 36415; 71275; 80053; 82550; 84484; 85025; 93005; 93010; 93971; 99283; 99284; Q9967

== ENCOUNTER → 2023-02-23 10:15 | Outpatient (CLI) | payer MEDICARE, OTHER, SELFPAY ==
--- NOTE | 2023-02-23 | DI.RAD.S_ITS ---
PROCEDURE: XR KUB INDICATIONS: hematuria TECHNIQUE: One view of the abdomen acquired. COMPARISON: None. FINDINGS: Surgical changes and devices: None. Bowel: Bowel gas pattern is normal. Soft tissues: No suspicious abdominal calcifications. Visualized solid organ contours appear normal in size. Bones: No suspicious bony lesions. IMPRESSION: No acute radiographic findings. Dictated by: Sarina Schmitz M.D. on 02/23/2023 at 16:54 Approved by: Sarina Schmitz M.D. on 02/23/2023 at 16:54
== END ==
PROVIDERS: Family Provider Family Medicine; PCP Family Medicine; Referring Provider Family Medicine; Visit Provider Family Medicine
DX: R31.9 Hematuria, unspecified (principal)
CPT/HCPCS: 74018

== ENCOUNTER → 2023-12-23 07:34 | Outpatient (CLI) | payer MEDICARE, OTHER, SELFPAY ==
--- NOTE | 2023-12-23 | DI.US.S_ITS ---
PROCEDURE: US CAROTID DOPPLER BI INDICATIONS: Altered mental status TECHNIQUE: Color and pulse Doppler interrogation was performed of both carotid systems, with image documentation and velocity measurements. COMPARISON: None. FINDINGS: Stenosis calculations are based on SRU (Society of Radiologists in Ultrasound) criteria. Right side: Brachial blood pressure: 125/72 mm Hg. Common carotid artery peak systolic velocity: 65 cm/sec. Internal carotid artery peak systolic velocity: 95 cm/sec. Internal carotid artery end diastolic velocity: 26 cm/sec. External carotid artery peak systolic velocity: 115 cm/sec. ICA/CCA peak systolic ratio: 1.5 . Pang scale imaging description: No significant plaques Percent internal carotid artery stenosis: No significant stenosis . Vertebral artery: Flow direction is antegrade. Left side: Brachial blood pressure: 126/60 mm Hg. Common carotid artery peak systolic velocity: 74 cm/sec. Internal carotid artery peak systolic velocity: 79 cm/sec. Internal carotid artery end diastolic velocity: 19 cm/sec. External carotid artery peak systolic velocity: 116 cm/sec. ICA/CCA peak systolic ratio: 1.1 . Pang scale imaging description: Mild atherosclerotic plaques Percent internal carotid artery stenosis: Less than 50% stenosis . Vertebral artery: Flow direction is antegrade. IMPRESSION: No significant stenosis in the right and less than 50% stenosis in the left proximal ICA. Dictated by: David Wallace M.D. on 12/23/2023 at 10:11 Approved by: David Wallace M.D. on 12/23/2023 at 10:15
--- NOTE | 2023-12-23 08:15 | DI.CT.S_ITS ---
PROCEDURE: CT HEAD/BRAIN WO CON INDICATIONS: Altered mental status TECHNIQUE: Noncontrast 4.5 mm thick angled axial sections acquired from the foramen magnum to the vertex, with coronal and sagittal reformats. For radiation dose reduction, the following was used: automated exposure control, adjustment of mA and/or kV according to patient size. COMPARISON: [facility], CT, CT HEAD/BRAIN WO CON, 07/01/2019, 11:41. FINDINGS: Image quality: Diagnostic. CSF spaces: Basal cisterns are patent. No extra-axial fluid collections. The ventricles are symmetric in size and shape. Brain: No intracranial bleeds or masses. There is cerebral volume loss for age, with resultant ventricular and sulcal prominence. There are periventricular and deep white matter chronic small vessel ischemic changes. There is intracranial internal carotid artery atherosclerosis. Skull and face: Calvarium and visualized facial bones appear intact, without suspicious lesions. Sinuses: Visualized sinuses and mastoids are clear. IMPRESSION: No cause for patient's symptoms is identified. No acute intracranial pathology. Age-related global volume loss and chronic microvascular ischemic changes. Dictated by: David Wallace M.D. on 12/23/2023 at 9:17 Approved by: David Wallace M.D. on 12/23/2023 at 9:19
== END ==
LOC: US 07:35
PROVIDERS: Family Provider Family Medicine; PCP Family Medicine; Referring Provider Family Medicine; Visit Provider Family Medicine
DX: I65.29 Occlusion and stenosis of unspecified carotid artery (principal); R41.82 Altered mental status, unspecified
CPT/HCPCS: 70450; 93880

== ENCOUNTER 2025-03-24 16:38 | Emergency (ER) | payer MEDICARE, SELFPAY ==
[2025-03-24] VITALS (8 sets, daily range): BP systolic 141–160; BP diastolic 70–82; PULSE 51–58; RESP 16–24; TEMP 36.3–36.6; O2SAT 93–98; BMI 30.2
--- NOTE | 2025-03-24 16:57 | DI.RAD.S_ITS ---
PROCEDURE: XR CHEST 1V INDICATIONS: Chest Pain TECHNIQUE: One view of the chest was acquired. COMPARISON: [facility], CR, XR CHEST 1V, 01/29/2024, 6:41. FINDINGS AND IMPRESSION: Low lung volumes. No dense airspace disease or pleural effusion on this single view study. Borderline cardiomegaly, unchanged. Degenerative osseous findings. Dictated by: Jules Méndez M.D. on 03/24/2025 at 17:42 Approved by: Jules Méndez M.D. on 03/24/2025 at 17:42
--- NOTE | 2025-03-24 17:04 | EKG_ITS ---
[place] [id number] [place] [id number] Test Date: 2025-03-24 Pat Name: Avinash Alford Department: [facility] Room: Gender: Male Occupational Therapy Supervisor: SOFY : 1935 Requested By: Order Number: [id number] Reading MD: Arun Armando MD Measurements Intervals [place] Rate: 54 P: -29 HI: 172 QRS: -17 QRSD: 120 T: 22 QT: 416 QTc: 394 Interpretive Statements Sinus bradycardia Nonspecific intraventricular conduction delay Electronically Signed On 03-27-2025 7:45:41 PDT by Arun Armando MD
[2025-03-24] MEDS: ASPIRIN 81 MG CHEW TAB 324 MG PO (17:24)
[2025-03-24 17:29] LABS: Add Manual Diff / Slide Review NO; Hematocrit 45.2 % (41-53); Hemoglobin 15.6 g/dL (13.5-17.5); Lymphocytes Absolute Auto 2000 /uL (1100-4500); Mean Corpuscular HGB Conc 34.5 % (30-36); Mean Corpuscular Hemoglobin 32.3 PG (26-34); Mean Corpuscular Volume 93.6 fL (80-100); Platelet Count 194 X10^3/uL (150-400)
[2025-03-24 17:38] LABS: INR 1.1 (0.9-1.3); Prothrombin Time 12.2 SECONDS (9.4-12.5)
[2025-03-24 17:41] LABS: PTT Partial Thromboplastin Tim 33 SECONDS (25.1-36.5)
--- NOTE | 2025-03-24 17:44 | ED.ARRPALP ---
HPI - Arrhythmia/Palpitations General Chief Complaint: Arrhythmia/Palpitations Stated Complaint: Palpitations Time Seen by Provider: 03/24/25 17:31 History of Present Illness HPI narrative: Patient drove here from local urgent care with his for complaints of intermittent left chest sharp electrical shock pain that lasts less than 3 seconds, he has had about 7 episodes in last 7 days with and without exertion. Not radiating pain. No jaw pain no neck pain no back pain no arm pain. No nausea sweating. No exertional chest pain. Has had stress test echocardiogram many years ago. No primary family history of heart attack coronary artery disease. Patient does have history of blood clot in lung and left arm due to intravenous access 3 months ago and is on Eliquis. No history of arrhythmia. Patient in no distress at this time. No discomfort. Patient walks every day and does not get exertional chest pain or shortness of breath or nausea or sweating. Related Data Home Medications ?Medication ?Instructions ?Recorded ?Confirmed ASPIRIN (Aspirin Low Dose) 81 mg PO Q DAY ##0 07/28/08 CALCIUM CARBONATE/VITAMIN D3 600 mg PO Q DAY ##0 07/28/08 (Oyster Shell Calcium-Vit D Tab) ISOSORBIDE DINITRATE (Isordil) 60 mg PO BID ##0 07/28/08 LEVOTHYROXINE SODIUM (Synthroid) 150 mcg PO Q DAY ##0 07/28/08 OMEPRAZOLE 20 mg PO Q DAY ##0 07/28/08 Simvastatin (Zocor) 40 mg PO HS ##0 07/28/08 VERAPAMIL HYDROCHLORIDE (Isoptin / 40 mg PO BID ##0 07/28/08 Calan) VITAMIN C - 500 mg PO Q DAY ##0 07/28/08 (VITAMIN C) [AVODART] 0.5 Q DAY ##0 07/28/08 Allergies Allergy/AdvReac Type Severity Reaction Status Date / Time No Known Drug Allergies Allergy Verified 10/23/20 12:05 Review of Systems Review of Systems Narrative: GENERAL: Negative chills, fatigue, malaise, fever, sweats. HEENT: Negative sinus pain, ear pain, sore throat RESPIRATORY: Negative dyspnea, cough CARDIOVASCULAR: Positive chest pain, palpitations GASTROINTESTINAL: Negative vomiting, nausea, abdominal pain : Negative dysuria, frequency, hematuria MUSCULOSKELETAL: Negative muscle or bony pain SKIN: Negative rash, skin lesions NEUROLOGIC: Negative weakness, numbness ROS Unobtainable: All systems reviewed & are unremarkable except as noted in HPI and below Patient History Medical History Phlebitis BPH (benign prostatic hyperplasia) GERD (gastroesophageal reflux disease) GERD with apnea HTN (hypertension) Surgical History History of cataract surgery Hx of vasectomy alcohol intake frequency: 0-2 drinks per day Exam Narrative Exam Narrative: GENERAL: in no distress, not toxic not dyspneic HEAD: Normocephalic. EYES: Pupils equal round ENT: Mucous membranes moist. NECK: Trachea midline. CARDIOVASCULAR: Regular rate and rhythm RESPIRATORY: Clear to auscultation. Breath sounds equal bilaterally. No wheezes, rales, or rhonchi. GASTROINTESTINAL: Abdomen soft, non-tender EXTREMITIES: No gross deformities. BACK: No flank tenderness. NEURO: AOx4. Clear speech SKIN: Warm and dry PSYCH: Not anxious, is cooperative Initial Vital Signs Initial Vital Signs: Vital Signs Temperature 97.4 F L 03/24/25 16:53 Pulse Rate 57 L 03/24/25 16:53 Respiratory Rate 16 03/24/25 16:53 Blood Pressure 160/76 H 03/24/25 16:53 Pulse Oximetry 96 03/24/25 16:53 Oxygen Delivery Method Room Air 03/24/25 16:53 Scores HEART Score Heart Score history: Slightly Suspicious Heart Score EKG: Normal Heart Score Age: > or = 65 years old Heart Score risk factors: 1-2 risk factors Heart Score troponin: < or = to normal limit Heart Score Total: 3 Course Orders Ordered: ED Orders 03/24/25 16:57 XR chest 1V Stat EKG-12 Lead Stat 03/24/25 17:11 Complete Blood Count AUTO DIFF Stat Comprehensive Metabolic Panel Stat D Dimer Stat Lipase Stat Magnesium Stat NT-proBNP (BNP-Adult 18+) Stat PTT Partial Thromboplastin Abhilash Stat Prothrombin Time INR Stat Troponin & CK Cardiac Panel Stat Discontinued Medications Aspirin (Aspirin 81 Mg Chew Tab) 324 mg PO NOW ONE Stop: 03/24/25 16:58 Last Admin: 03/24/25 17:24 Dose: 324 mg Documented By: SB Vital Signs Vital signs: Vital Signs - 8 hr 03/24/25 16:53 03/24/25 17:14 03/24/25 17:19 Temperature 97.4 F L Pulse Rate 57 L 58 L Respiratory Rate 16 Blood Pressure 160/76 H 155/75 H Pulse Oximetry 96 93 Oxygen Delivery Method Room Air 03/24/25 17:19 03/24/25 17:30 03/24/25 17:30 Temperature Pulse Rate 53 L 54 L Respiratory Rate 23 22 Blood Pressure 141/70 H Pulse Oximetry 97 97 Oxygen Delivery Method 03/24/25 18:00 03/24/25 18:01 03/24/25 18:01 Temperature Pulse Rate 54 L 55 L Respiratory Rate 24 23 Blood Pressure 150/82 H Pulse Oximetry 96 97 Oxygen Delivery Method 03/24/25 18:30 03/24/25 18:30 03/24/25 18:47 Temperature 97.8 F Pulse Rate 51 L 52 L Respiratory Rate 20 20 Blood Pressure 152/71 H 152/74 H Pulse Oximetry 97 98 Oxygen Delivery Method Room Air Room Air MDM - Arrhythmia/Palpitations Lab Data 03/24/25 17:11 03/24/25 17:11 Labs: Lab Results 03/24/25 Range/Units 17:11 WBC 7.6 (4.5-11.0) X10^3/uL RBC 4.83 (4.5-5.9) X10^6/uL Hgb 15.6 (13.5-17.5) g/dL Hct 45.2 (41-53) % MCV 93.6 (80-100) fL MCH 32.3 (26-34) PG MCHC 34.5 (30-36) % RDW 13.4 (11.6-14.8) % Plt Count 194 (150-400) X10^3/uL Neut % (Auto) 63.9 (50-75) % Lymph % (Auto) 26.8 (25-40) % [place] % (Auto) 6.7 (3-14) % Eos % (Auto) 2.1 (2-4) % Baso % (Auto) 0.5 (0-2) % Neut # (Auto) 4900 (2052-7313) /uL Lymph # (Auto) 2000 (5132-3793) /uL [place] # (Auto) 500 (0-900) /uL Eos # (Auto) 200 (0-450) /uL Baso # (Auto) 0 (0-100) /uL PT 12.2 (9.4-12.5) SECONDS INR 1.1 (0.9-1.3) APTT 33 (25.1-36.5) SECONDS D-Dimer 230 (<500) ng/ml Sodium 138 (137-145) mmol/L Potassium 3.9 (3.4-5.1) mmol/L Chloride 104 (98-107) mmol/L Carbon Dioxide 29 (22-32) mmol/L BUN 16 (9-20) mg/dL Creatinine 1.04 (0.66-1.25) mg/dL Estimated GFR > 60 (>60) mL/min BUN/Creatinine Ratio 15.4 (6-22) Glucose 94 (70-99) mg/dL Calcium 8.9 (8.4-10.2) mg/dL Magnesium 1.8 (1.6-2.3) mg/dL Total Bilirubin 0.7 (0.2-1.3) mg/dL AST 24 (17-59) IU/L ALT 14 (<50) IU/L Alkaline Phosphatase 49 (38-126) U/L Total Creatine Kinase 39 L (55-170) U/L Troponin I < 0.012 (0.01-0.034) ng/mL NT-Pro-B Natriuret Pep 74 (<450) pg/mL Total Protein 7.1 (6.3-8.2) g/dL Albumin 4.0 (3.5-5.0) g/dL Globulin 3.1 (1.7-4.1) g/dL Albumin/Globulin Ratio 1.3 (1.0-2.8) Lipase 114 (23-300) U/L Imaging Data Chest x-ray: Radiologist's Impresson: [address] [address] XRay Report Signed Patient: Avinash Alford MR#: [id number] : 1935 Acct:[id number] Age/Sex: 89 / M Date of Service: 03/24/25 Loc: ED Accession Number: [id number] Procedure: XR chest 1V Ordering Provider: Efrem Go MD PROCEDURE: XR CHEST 1V INDICATIONS: Chest Pain TECHNIQUE: One view of the chest was acquired. COMPARISON: [facility], CR, XR CHEST 1V, 01/29/2024, 6:41. FINDINGS AND IMPRESSION: Low lung volumes. No dense airspace disease or pleural effusion on this single view study. Borderline cardiomegaly, unchanged. Degenerative osseous findings. Dictated by: Jules Méndez M.D. on 03/24/2025 at 17:42 Approved by: Jules Méndez M.D. on 03/24/2025 at 17:42 MDM Narrative Medical decision making narrative: Patient drove here from local urgent care with his for complaints of intermittent left chest sharp electrical shock pain that lasts less than 3 seconds, he has had about 7 episodes in last 7 days with and without exertion. Not radiating pain. No jaw pain no neck pain no back pain no arm pain. No nausea sweating. No exertional chest pain. Has had stress test echocardiogram many years ago. No primary family history of heart attack coronary artery disease. Patient does have history of blood clot in lung and left arm due to intravenous access 3 months ago and is on Eliquis. No history of arrhythmia. Patient in no distress at this time. No discomfort. Patient walks every day and does not get exertional chest pain or shortness of breath or nausea or sweating. MDM After history and exam, CBC CMP EKG troponin D-dimer BNP chest x-ray cardiology consult Differential considered: Includes but not limited to STEMI non-STEMI PVC arrhythmia angina Medical records reviewed: No recent visit for this complaint Lab Test results independently reviewed as above. Pertinent findings: WBC 7.6 hemoglobin 15.6 INR is 1.1 INR 1.1 sodium 138 potassium 3.9 troponin less than 0.012 BNP 74 D-dimer 230 Independently reviewed EKG sinus bradycardia rate 54 Imaging studies independently reviewed: Chest x-ray no acute finding Consultations: 6:33 p.m.. I spoke with Dr. Brooks, cardiology with [facility]. No indication for patient to be admitted or stress test. Patient can follow up with primary care for follow up and consider outpatient stress test. This does not appear to be cardiac in origin. Re-evaluations: 6:45 p.m.. Reviewed results with patient and . I have spoken with cardiology services. Results are reassuring. He can follow up with primary care for outpatient Holter monitor and re-evaluation. He agrees with this plan. Patient has appointment with primary care next Thursday. Discussion: Appropriate for discharge home exam is reassuring. Return precautions reviewed patient examined laboratory studies imaging studies reassuring. Cardiology was contacted. Desires discharge home. Patient has low heart score of 3 Diagnosis: Atypical chest pain Discharge Plan Departure Patient Disposition: Home Clinical Impression: Atypical chest pain Instructions: DI for Ambulatory Cardiac Monitoring, DI for Atypical Chest Pain Activity Restrictions/Additional Instructions: Your exam and laboratory studies and imaging studies are reassuring. Cardiology services was contacted today. You may follow up with family doctor for re-evaluation and consider outpatient cardiac stress test and possible Holter monitor. Return if worse if any questions or concerns. Continue home medications. Prescriptions: No Action VERAPAMIL HYDROCHLORIDE (Isoptin / Calan) 40 mg PO BID Qty: 0 ASPIRIN (Aspirin Low Dose) 81 mg PO Q DAY Qty: 0 ISOSORBIDE DINITRATE (Isordil) 60 mg PO BID Qty: 0 OMEPRAZOLE 20 mg PO Q DAY Qty: 0 Simvastatin (Zocor) 40 mg PO HS Qty: 0 CALCIUM CARBONATE/VITAMIN D3 (Oyster Shell Calcium-Vit D Tab) 600 mg PO Q DAY Qty: 0 LEVOTHYROXINE SODIUM (Synthroid) 150 mcg PO Q DAY Qty: 0 VITAMIN C - (VITAMIN C) 500 mg PO Q DAY Qty: 0 [AVODART] 0.5 Q DAY Qty: 0 Referrals: Diego Field MD [Primary Care Provider, Family Practice] Stand Alone Forms: Patient Portal/API
[2025-03-24 17:47] LABS: Alanine Aminotransferase 14 IU/L (<50); Albumin 4.0 g/dL (3.5-5.0); Albumin Globulin Ratio 1.3 (1.0-2.8); Alkaline Phosphatase 49 U/L (38-126); Blood Urea Nitrogen 16 mg/dL (9-20); Calcium 8.9 mg/dL (8.4-10.2); Carbon Dioxide 29 mmol/L (22-32); Chloride 104 mmol/L (98-107); Creatine Kinase 39 U/L (55-170); Estimated Glomerular Filt Rate > 60 mL/min (>60); Globulin 3.1 g/dL (1.7-4.1); Glucose 94 mg/dL (70-99); HEMOLYSIS < 15 (0-50); Lipase 114 U/L (23-300); Magnesium 1.8 mg/dL (1.6-2.3); Potassium 3.9 mmol/L (3.4-5.1); Sodium 138 mmol/L (137-145); Total Protein 7.1 g/dL (6.3-8.2)
[2025-03-24 17:59] LABS: NT-proBNP (BNP-Adult 18+) 74 pg/mL (<450); Troponin I < 0.012 ng/mL (0.01-0.034)
== END 2025-03-24 18:48 | disposition home or self-care (01) ==
PROVIDERS: Emergency Provider Emergency Medicine; Family Provider Family Medicine; PCP Family Medicine
DX: R07.89 Other chest pain (principal); R00.2 Palpitations
CPT/HCPCS: 36415; 71045; 80053; 82550; 83690; 83735; 83880; 84484; 85025; 85379; 85610; 85730; 93005; 93010; 99284